=== PATIENT | male | born 1980 | race Caucasian/White ===

== ENCOUNTER 2024-02-03 11:11 | Outpatient (CLI) | payer OTHER, SELFPAY ==
--- NOTE | ~2024-02-03 | XR_ITS ---
Lumbosacral Spine: AP and lateral views Clinical History: Pain Findings: The normal lordotic curve is maintained. No acute fracture seen. Questionable L5 pars inter articularis defects. There is advanced degenerative disc narrowing at L5-S1. There is advanced facet arthropathy at L4-S1. The sacroiliac joints are normally outlined. Impression: Moderate to advanced degenerative spondylosis of the lower lumbar spine. Possible bilateral L5 pars and articular defects. Reviewed, dictated and finalized at location . Impression: Moderate to advanced degenerative spondylosis of the lower lumbar spine. Possible bilateral L5 pars and articular defects.
== END 2024-02-03 11:12 | disposition home or self-care (01) ==
PROVIDERS: PCP Physician Assistant Medical; Visit Provider Physician Assistant Medical
DX: M47.896 Other spondylosis, lumbar region (principal)
CPT/HCPCS: 72100